=== PATIENT | female | born 1940 | race Caucasian/White ===

== ENCOUNTER 2017-06-27 14:29 | Outpatient (CLI) | payer MEDICARE, BC | END 2017-06-27 14:30 | disposition home or self-care (01) | LOC: BICMAMMO 14:29 | PROVIDERS: ATTEND Obstetrics & Gynecology | DX: Z13.820 Encounter for screening for osteoporosis; Z80.3 Family history of malignant neoplasm of breast; M85.89 Other specified disorders of bone density and structure, multiple sites; Z12.31 Encounter for screening mammogram for malignant neoplasm of breast | CPT/HCPCS: 77063; 77067; 77080 ==

== ENCOUNTER 2021-05-07 09:12 | Outpatient (CLI) | payer MEDICARE, BC | END 2021-05-07 09:13 | disposition home or self-care (01) | LOC: BICMAMMO 09:12 | PROVIDERS: ATTEND Obstetrics & Gynecology | DX: M81.0 Age-related osteoporosis without current pathological fracture (principal); M85.89 Other specified disorders of bone density and structure, multiple sites | CPT/HCPCS: 77080 ==